=== PATIENT | female | born 2000 | race Hispanic/Latino ===

== ENCOUNTER 2021-01-24 22:40 | Emergency (ER) | payer OTHER ==
[~2021-01-24] VITALS: Ht 160 cm; Wt 47.6 kg
[2021-01-24 22:42] VITALS: BP 125/89
[2021-01-24] MEDS ORDERED: OCTYL 2-CYANOACRYLATE 1 EACH TP ONE ×2 (23:42)
[2021-01-25] MEDS ORDERED: TETANUS/DIPHTHERIA TOXOID [ADULT] 0.5 ML VIAL IM SCH
== END 2021-01-25 00:20 | disposition home or self-care (01) ==
LOC: EDH 22:40
DX: S61.012A Laceration without foreign body of left thumb without damage to nail, initial encounter (principal); W26.0XXA Contact with knife, initial encounter; Y93.G3 Activity, cooking and baking; Y92.090 Kitchen in other non-institutional residence as the place of occurrence of the external cause; Y99.8 Other external cause status
CPT/HCPCS: 12001; 90471; 90714